=== PATIENT | female | born 1980 | race Caucasian/White ===

== ENCOUNTER → 2016-12-07 09:04 | Outpatient (CLI) | payer MEDICAID ==
[2016-12-07 09:39] LABS: BASOPHILS 0.3 % (0.0-2.0); EOSINOPHILS 3.5 % (0-7); HEMATOCRIT 40.6 % (36.0-48.0); HEMOGLOBIN 13.5 g/dL (12-16); LYMPHOCYTES 24.2 % (15-50); MCHC 33.3 g/dL (31.0-37.0); MCV 84.2 fL (80.0-100.0); MEAN PLATELET VOLUME 9.2 fL (7.4-10.4); MONOCYTES 6.8 % (2-11); NEUTROPHILS 65.2 % (40-80); PLATELET COUNT 344 10x3/uL (130-400); RBC 4.82 10x6/uL (4.00-5.40); RDW 15.1 % (11.5-14.5); WBC 7.1 10x3/uL (4.8-10.8)
[2016-12-07 09:56] LABS: ALBUMIN 3.8 g/dL (3.4-5.0); ALKALINE PHOSPHATASE 97 U/L (46-116); ALT (SGPT) 45 U/L (10-68); BILIRUBIN - TOTAL 0.16 mg/dL (0.2-1.3); CALC OSMOLALITY 271 mosm/kg (275-300); CALCIUM 8.8 mg/dL (8.5-10.1); CARBAMAZEPINE (TEGRETOL) 3.5 ug/mL (4.0-12.0); CHLORIDE - SERUM 101 mmol/L (98-107); CREATININE - SERUM 0.8 mg/dL (0.6-1.3); GLUCOSE 114 mg/dL (74-106); POTASSIUM - SERUM 4.3 mmol/L (3.5-5.1); PROTEIN - SERUM 7.7 g/dL (6.4-8.2); SODIUM 135 mmol/L (136-145); UREA NITROGEN 14 mg/dL (7-18); eGFR NON AFRICAN AMERICAN 85 mL/min (90-120)
--- NOTE | 2016-12-12 06:59 | EEG ---
PATIENT:YRIS WHITTEN DATE OF SERVICE: 12/07/16 MEDICAL RECORD: [id number] DATE OF : 76 LOCATION: [facility] ADMISSION DATE: 12/07/16 REFERRING PHYSICIAN: INTERPRETING PHYSICIAN: GABRIELA BENÍTEZ MD DATE OF SERVICE: 12/07/2016 Electroencephalographic Report Referred as an outpatient by myself. ELECTROENCEPHALOGRAM NUMBER: [id number]. DATE OF EXAMINATION: 12/07/2016 at 10:30 a.m. TECHNICAL DATA: This electroencephalographic recording consists of approximately 20 minutes of data collection utilizing the international 10/20 system of electrode placement and both referential and non-referential montages. Sixteen channels of electrocerebral recording are accompanied by a 17th channel dedicated to the electrocardiographic rhythm and 2 channels of electromyographic recording. Recording is performed in the awake and sleep states utilizing activation by hyperventilation and photic stimulation. ELECTROENCEPHALOGRAPHIC DATA: The awake state comprises approximately 40% of the recorded electrocerebral activity. Electromyographic artifact is prominent and rapid eye movements are seen. The posterior dominant background consists of a well-developed, symmetric, rhythmic, waxing and waning alpha activity of 9-10 Hz, which is suppressed by eye opening. The drowsy state comprises approximately 30% of the recorded electrocerebral activity. Electromyographic artifact is diminished and rapid eye movements are not seen. Occasional sharp vertex waves are also observed. The transition to stage II sleep, which comprises the remaining portion of the recorded electrocerebral activity is heralded by the appearance of typical 15 Hz sleep spindles. No abnormal or focal slowing is identified. No epileptiform discharges are seen. Hyperventilation and photic stimulation induced no abnormal change in the recorded electrocerebral activity. INTERPRETATION: Normal (awake and asleep). This is a normal electroencephalographic recording. TRANSINT:[id number] Voice Confirmation ID: [id number] DOCUMENT ID: [id number] ELECTROENCEPHALOGRAM REPORT [id number] YRIS WHITTEN MORA GABRIELA BENÍTEZ MD at 0659 CC: [id number] DICTATION DATE: 12/08/16 0709 DIAPER MACHINE TENDER: 12/09/16 0039 DEP CLI 12/07/16 [place] [id number]
== END | disposition home or self-care (01) ==
LOC: D.LAB 09:04 → D.CN 10:00 → D.MRI 11:00
PROVIDERS: Psychiatry & Neurology Neurology
DX: G40.201 Localization-related (focal) (partial) symptomatic epilepsy and epileptic syndromes with complex partial seizures, not intractable, with status epilepticus (principal)

== ENCOUNTER → 2017-06-26 10:34 | Outpatient (CLI) | payer MEDICAID ==
[~2017-06-26 10:34] MED LIST: DURICEF500 MG PO; GEMFIBROZIL600 MG PO; LEVOTHYROXINE175 MCG PO; LISINOPRIL-HCTZ1 T13 PO; PERCOCET 5-3251 TAB PO
[2017-08-31 07:47] VITALS: BMI 46.2
== END | disposition home or self-care (01) ==
LOC: D.US 10:34
DX: M25.531 Pain in right wrist (principal)

== ENCOUNTER 2017-08-31 05:12 | Day surgery (SDC) | payer MEDICAID ==
[2017-08-30 10:12] LABS: HEMATOCRIT 42.8 % (36.0-48.0); HEMOGLOBIN 14.3 g/dL (12-16); MCH 29.1 pg (26.0-34.0); MCHC 33.4 g/dL (31.0-37.0); MEAN PLATELET VOLUME 9.3 fL (7.4-10.4); RBC 4.92 10x6/uL (4.00-5.40); RDW 13.5 % (11.5-14.5); WBC 8.1 10x3/uL (4.8-10.8)
[2017-08-30 10:56] LABS: CALC OSMOLALITY 270 mosm/kg (275-300); CALCIUM 9.9 mg/dL (8.5-10.1); CARBON DIOXIDE 29.1 mmol/L (21.0-32.0); CHLORIDE - SERUM 99 mmol/L (98-107); CREATININE - SERUM 0.8 mg/dL (0.6-1.3); GLUCOSE 94 mg/dL (74-106); POTASSIUM - SERUM 4.3 mmol/L (3.5-5.1); SODIUM 135 mmol/L (136-145); UREA NITROGEN 16 mg/dL (7-18); eGFR NON AFRICAN AMERICAN 85 mL/min (90-120)
[~2017-08-31] VITALS: Ht 157.5 cm; Wt 114.3 kg
--- NOTE | ~2017-08-31 | OP ---
PATIENT NAME: YRIS ROSARIO MEDICAL RECORD: [id number] :76 LOCATION:[facility] ADMISSION DATE: SURGEON: JOSS NOWAK DO DATE OF OPERATION: 08/31/2017 PROCEDURES PERFORMED: Right volar wrist ganglion excision and right endoscopic carpal tunnel release. PREOPERATIVE DIAGNOSES: Right carpal tunnel syndrome and painful ganglion of the right volar wrist. POSTOPERATIVE DIAGNOSES: Right carpal tunnel syndrome and painful ganglion of the right volar wrist. INDICATIONS: Ms. Rosario is a 36-year-old female who presented to my office with a long history of right hand numbness and tingling. It would go to sleep on her and when she talked on the phone or drove and would wake her up at night. She also had a ganglion cyst over the radial side of the volar wrist that bothered her for quite some time. An ultrasound was done to ensure it was not an aneurysm of the radial artery and it was not, and she also had nerve conduction study, which revealed severe carpal tunnel syndrome on the right and moderate cubital tunnel. We decided not to treat the cubital tunnel due to her not having any symptoms. SURGEON: Joss Nowak DO TOURNIQUET TIME: 24 minutes. COMPLICATIONS: None. DESCRIPTION OF PROCEDURE: The patient was taken to the operative suite, laid in the supine position, given general anesthetic, given 2 grams Ancef preoperatively. The right upper extremity had a tourniquet placed above the elbow and then was prepped and draped in sterile fashion. Once this was done, a timeout was performed and everyone was in agreement as the correct side, site, the patient and procedure. The carpal tunnel was addressed first. First, the right upper extremity was exsanguinated with an Esmarch and the tourniquet was inflated. The carpal tunnel incision was made at the proximal wrist crease and careful dissection was made down to the carpal tunnel itself. Incision was made with a knife and then dissection was made with Ragnells. Once carpal tunnel was entered, the distal forearm fascia was released from distal to proximal and then the carpal tunnel was entered with the dilators and then the sheath was entered, the camera was entered, and the transverse carpal ligament was viewed. This was viewed and probed and then rasped to make sure that it was just transverse carpal ligament. The blade was then entered and under direct visualization, the transverse carpal ligament was divided with a knife and had good release and then the camera was removed as well as the knife and the sheath and then with loupe visualization, the remainder of any tissue that was holding the transverse carpal ligament together was released under direct visualization with the scissors. After this was done, attention was then drawn to the volar wrist ganglion. A longitudinal incision was made over the ganglion itself with a 15-blade and then careful dissection was made with Miquel down to the wrist joint itself. The radial artery was viewed and taken radially with a Ragnell and protected. The ganglion ruptured at that time and then the remainder of the ganglion was excised with the scissors and the stalk itself was removed as well OPERATIVE REPORT [id number] YRIS ROSARIO as the wrist joint and then the bipolar was used to cauterize the stalk and the wrist capsule. The tourniquet was let down at 24 minutes. Any bleeders were cauterized at that time with the bipolar and then each incision was closed with 5-0 Monocryl in an inverted interrupted fashion. Steri-Strips, Adaptic, and 4 x 4 were placed over the incisions, and Kerlix and Coban was lightly wrapped over the wrist. The patient was awakened and taken to the recovery room in stable condition. COMPLICATIONS: None. ESTIMATED BLOOD LOSS: Minimal. TRANSINT:[id number] Voice Confirmation ID: [id number] DOCUMENT ID: [id number] JOSS NOWAK DO at 1427 CC: [id number] DICTATION DATE: 08/31/17 1004 APPETIZER PACKER: 08/31/17 1258 [facility] 08/31/17 [facility] [address] [place] [address]
[~2017-08-31 05:12] MED LIST changes: -DURICEF500 MG PO; -PERCOCET 5-3251 TAB PO
[2017-08-31 07:46] LABS: HCG URINE NEGATIVE (NEGATIVE)
[2017-08-31 07:47] VITALS: BP 131/82; Ht 157.5 cm; Wt 114.3 kg
[2017-08-31] MEDS ORDERED: DURICEF500 MG PO (09:58)
[2017-08-31] MEDS ORDERED: PERCOCET 5-3251 TAB PO (09:58)
== END 2017-08-31 12:00 | disposition home or self-care (01) ==
LOC: D.OPS 05:12 → D.PAN 09:30 → D.OPS 09:45
PROVIDERS: Anesthesiology; Orthopaedic Surgery
DX: G56.01 Carpal tunnel syndrome, right upper limb (principal); M67.431 Ganglion, right wrist; I10 Essential (primary) hypertension; E03.9 Hypothyroidism, unspecified; K21.9 Gastro-esophageal reflux disease without esophagitis; E66.01 Morbid (severe) obesity due to excess calories; Z68.42 Body mass index [BMI] 45.0-49.9, adult; Z01.812 Encounter for preprocedural laboratory examination

== ENCOUNTER → 2018-04-16 08:32 | Outpatient (CLI) | payer MEDICAID ==
[2017-08-31 07:47] VITALS: BMI 46.2
[~2018-04-16 08:32] MED LIST changes: +DURICEF500 MG PO; +PERCOCET 5-3251 TAB PO
== END | disposition home or self-care (01) ==
LOC: D.CT 08:32
DX: K43.2 Incisional hernia without obstruction or gangrene (principal)

== ENCOUNTER → 2018-06-14 08:13 | Day surgery (SDC) | payer MEDICAID ==
[~2018-06-14] VITALS: Ht 157.5 cm; Wt 117.9 kg
--- NOTE | ~2018-06-14 | OP ---
PATIENT NAME: YRIS WHITTEN MEDICAL RECORD: [id number] :76 LOCATION:D[facility] ADMISSION DATE: SURGEON: CLARE MCLAIN MD DATE OF OPERATION: 06/14/2018 PREOPERATIVE DIAGNOSIS: Symptomatic ventral hernia. POSTOPERATIVE DIAGNOSIS: Symptomatic incarcerated ventral hernia. PROCEDURE: Laparoscopic incarcerated ventral hernia repair with Ventralight ST mesh utilizing the Echo positioning system. SURGEON: Clare Mclani MD REGISTERED DIET TECHNICIAN: None. BLOOD LOSS: Minimal. ANESTHESIA: General. COMPLICATIONS: None. The risks, possible complications and alternatives to procedure were explained to the patient. She elects to proceed. The discussion specifically included, but was not limited to, bleeding requiring emergency reoperation, infection, intestinal injury as well as reherniation. OPERATIVE COURSE: The patient was conveyed to the operating room electively on 06/14/2018. General anesthesia was induced by the anesthesia staff. The abdomen was sterilely prepped and draped. A small skin ev was accomplished in the left upper quadrant. Veress needle was inserted through the skin ev and into the peritoneal cavity. CO2 insufflation was begun. Once a sufficient pneumoperitoneum had been achieved, a 12-mm trocar was inserted in the left upper quadrant. Under direct internal vision utilizing a television camera, two 5-mm trocars were inserted in the right side of the abdomen and one 5-mm trocar was inserted in the left side of the abdomen. During insertion of the Veress needle and all trocars, there appeared to have been no injury to the bowels, any intraperitoneal or retroperitoneal structures. Utilizing the laparoscopic Harmonic scalpel, I took down the falciform ligament as well as the anterior portion of the triangular ligament of the liver. I removed the preperitoneal fat and some of the peritoneum from the midline in order to allow for better purchase of the fixation devices. A prevesicular flap was created as well. Intravenous methylene blue was given. There was no spillage of methylene blue and therefore no evidence of a bladder injury. There was a small ventral hernia at the umbilicus. There was incarcerated preperitoneal fat, which was reduced in a piecemeal fashion. Some of the omentum and preperitoneal fat was placed within a bag retrieval device and was withdrawn through the 12-mm trocar. I then took a small Ventralight ST mesh and rehydrated it. I rolled it up and advanced down through the 12-mm trocar and then unrolled it. A skin incision was accomplished within the patient's supraumbilical scar where she had her navel pierced. I advanced the laparoscopic suture passer and advanced it down OPERATIVE REPORT [id number] MARIA DOLORESYRIS KHANY through the hernia defect. I grasped the tail of the Echo positioning system and withdrew it out through the anterior abdominal wall. I cut the tubing and then inflated the positioning system. I positioned the mesh up against the anterior abdominal wall. A circumferential tacking was performed with 2 different tacking devices including the SorbaFix tacker. The Echo positioning system was then removed in its entirety. We desufflated to a level of 8. There was no bleeding. The 12-mm trocar was removed. The muscle at the 12-mm trocar site was closed with the Juwan-Fausto suture closure device and 0 Vicryl sutures. All the trocars were removed and the abdomen desufflated. Skin incisions were closed with interrupted intracuticular 3-0 Vicryls. Benzoin and Steri-Strips were applied. The patient was then extubated and conveyed to post-anesthesia care unit where she was in stable condition. She was dismissed home on an analgesic. I will see her in the office in 2-3 weeks. TRANSINT:[id number] Voice Confirmation ID: [id number] DOCUMENT ID: [id number] CLARE MCLAIN MD at 1708 CC: [id number] DICTATION DATE: 06/15/18 1541 TRASH COLLECTOR TRUCK DRIVER: 06/15/18 1609 [facility] 06/14/18 [place] [id number] [place] [address]
[2018-06-14 08:40] LABS: BASOPHILS 0.4 % (0-2); EOSINOPHILS 2.1 % (0-7); HEMATOCRIT 39.7 % (36.0-48.0); HEMOGLOBIN 13.3 g/dL (12-16); IMMATURE GRANULOCYTES 0.1 % (0-5); LYMPHOCYTES 17.7 % (15-50); MCH 28.6 pg (26.0-34.0); MCHC 33.5 g/dL (31.0-37.0); MCV 85.4 fL (80.0-100.0); MEAN PLATELET VOLUME 9.5 fL (7.4-10.4); MONOCYTES 7.4 % (2-11); NEUTROPHILS 72.3 % (40-80); RBC 4.65 10x6/uL (4.00-5.40); RDW 13.8 % (11.5-14.5); WBC 8.1 10x3/uL (4.8-10.8)
[2018-06-14 08:48] LABS: PLATELET COUNT 315 10x3/uL (130-400)
[2018-06-14 08:59] LABS: CALC OSMOLALITY 272 mosm/kg (275-300); CALCIUM 9.2 mg/dL (8.5-10.1); CARBON DIOXIDE 26.5 mmol/L (21.0-32.0); CHLORIDE - SERUM 102 mmol/L (98-107); CREATININE - SERUM 0.8 mg/dL (0.6-1.3); GLUCOSE 118 mg/dL (74-106); POTASSIUM - SERUM 4.3 mmol/L (3.5-5.1); SODIUM 136 mmol/L (136-145); UREA NITROGEN 12 mg/dL (7-18); eGFR NON AFRICAN AMERICAN 85 mL/min (90-120)
[2018-06-14 09:01] LABS: HCG SERUM NEGATIVE (NEGATIVE)
[2018-06-14 09:25] VITALS: BP 138/90; Ht 157.5 cm; Wt 117.9 kg
== END | disposition home or self-care (01) ==
LOC: D.OPS 08:00 → D.PAN 08:00 → D.OPS 08:13 → D.PAN 09:00 → D.OPS 10:00
PROVIDERS: Anesthesiology
DX: K43.9 Ventral hernia without obstruction or gangrene (principal)

== ENCOUNTER 2018-06-23 18:52 | Emergency (ER) | payer MEDICAID ==
[~2018-06-23] VITALS: Ht 157.5 cm; Wt 118.2 kg
[2018-06-23 19:03] VITALS: Ht 157.5 cm; Wt 118.2 kg
[2018-06-23 19:21] LABS: BASOPHILS 0.4 % (0-2); HEMATOCRIT 41.5 % (36.0-48.0); HEMOGLOBIN 13.8 g/dL (12-16); IMMATURE GRANULOCYTES 0.4 % (0-5); LYMPHOCYTES 20.5 % (15-50); MCH 28.7 pg (26.0-34.0); MCHC 33.3 g/dL (31.0-37.0); MCV 86.3 fL (80.0-100.0); MEAN PLATELET VOLUME 10.4 fL (7.4-10.4); MONOCYTES 6.2 % (2-11); NEUTROPHILS 70.5 % (40-80); PLATELET COUNT 299 10x3/uL (130-400); RBC 4.81 10x6/uL (4.00-5.40); WBC 11.4 10x3/uL (4.8-10.8)
[2018-06-23 19:22] LABS: APPEARANCE CLEAR (CLEAR); BILIRUBIN NEGATIVE (NEGATIVE); COLOR STRAW (YELLOW); GLUCOSE NEGATIVE (NEGATIVE); KETONE NEGATIVE (NEGATIVE); NITRITE NEGATIVE (NEGATIVE); PROTEIN NEGATIVE (NEGATIVE); UROBILINOGEN NORMAL (NORMAL)
[2018-06-23 19:42] LABS: ALBUMIN 3.9 g/dL (3.4-5.0); BILIRUBIN - TOTAL 0.39 mg/dL (0.2-1.3); CALCIUM 9.5 mg/dL (8.5-10.1); CREATININE - SERUM 0.9 mg/dL (0.6-1.3); PROTEIN - SERUM 8.5 g/dL (6.4-8.2)
[2018-06-23 20:51] VITALS: BP 121/79
== END 2018-06-23 20:50 | disposition home or self-care (01) ==
LOC: D.ER 18:52
PROVIDERS: Family Medicine
DX: G89.18 Other acute postprocedural pain (principal); G40.909 Epilepsy, unspecified, not intractable, without status epilepticus; I10 Essential (primary) hypertension; K21.9 Gastro-esophageal reflux disease without esophagitis